=== PATIENT | female | born 1980 | race Caucasian/White ===

== ENCOUNTER 2017-08-20 11:17 | Emergency (ER) | payer OTHER ==
[2017-08-20 11:25] VITALS: BP 130/70
--- NOTE | 2017-08-20 11:46 | PHYS DOC ---
Past History Past Medical History: No Pertinent History Past Surgical History: No Surgical History Alcohol Use: None Drug Use: None Adult General Chief Complaint Chief Complaint: LACERATION/AVULSION [facility] HPI 37-year-old right-handed female patient without medical problem states she caught her left hand between second and third interphalangeal web while cutting an Avocado without other injuries or focal neuro deficit. Review of Systems Review of Systems Constitutional: Denies fever or chills [] Eyes: Denies change in visual acuity, redness, or eye pain [] HENT: Denies nasal congestion or sore throat [] Respiratory: Denies cough or shortness of breath [] Cardiovascular: No additional information not addressed in HPI [] GI: Denies abdominal pain, nausea, vomiting, bloody stools or diarrhea [] : Denies dysuria or hematuria [] Musculoskeletal: Denies back pain or joint pain [] Integument: Denies rash or skin lesions [] Neurologic: Denies headache, focal weakness or sensory changes [] Endocrine: Denies polyuria or polydipsia [] All other systems were reviewed and found to be within normal limits, except as documented in this note. Physical Exam Physical Exam Constitutional: Well developed, well nourished, no acute distress, non-toxic appearance. [] HENT: Normocephalic, atraumatic, bilateral external ears normal, oropharynx moist, no oral exudates, nose normal. [] Eyes: PERRLA, EOMI, conjunctiva normal, no discharge. [] Neck: Normal range of motion, no tenderness, supple, no stridor. [] Cardiovascular:Heart rate regular rhythm, no murmur [] Lungs & Thorax: Bilateral breath sounds clear to auscultation [] Skin: Warm, dry, no erythema, no rash. [] Back: No tenderness, no CVA tenderness. [] Extremities: 1 cm laceration between the web of second and third finger and 0.5 cm laceration in dorsal side of third finger without active bleeding Neurologic: Alert and oriented X 3, normal motor function, normal sensory function, no focal deficits noted. [] Psychologic: Affect normal, judgement normal, mood normal. [] Current Patient Data Vital Signs Vital Signs Date Time Temp Pulse Resp B/P (MAP) Pulse Ox O2 Delivery O2 Flow Rate FiO2 08/20/17 11:25 98.6 61 16 98 Room Air EKG EKG [] Radiology/Procedures Radiology/Procedures [] Course & Med Decision Making Course & Med Decision Making Evaluation of patient in ER showed 37-year-old female patient with laceration indicative able second and third finger. Patient did not want stitches and wanted tissue glue. After applying Dermabond to laceration area finger stick to get it by applying Coban .The patient instructed to keep finger close together for a few days and follow with her primary care physician. Dragon Disclaimer Dragon Disclaimer This electronic medical record was generated, in whole or in part, using a voice recognition dictation system. Departure Departure: Impression: Primary Impression: Finger laceration Disposition: HOME, SELF-CARE (At 1145) Condition: IMPROVED Patient Instructions: Tissue Adhesive Wound Care Additional Instructions: Follow-up with your physician in 3-5 days Return to ER if not getting better Laceration Repair Lac Repair Indication: [laceration ] Procedure: The patient was placed in the appropriate position and the laceration between second and third finger web repaired by Dermabond and Steri- Strip. Total repaired wound length: [1 cm]. Other Items: [Dermabond and steri strip] The patient tolerated the procedure [well]. Complications: [none]. DANIELLE ESTRADA MD Aug 20, 2017 11:46
== END 2017-08-20 11:50 | disposition home or self-care (01) ==
LOC: ER 11:17
DX: S61.213A Laceration without foreign body of left middle finger without damage to nail, initial encounter (principal); W26.0XXA Contact with knife, initial encounter; Y93.89 Activity, other specified; Y99.8 Other external cause status; Y92.89 Other specified places as the place of occurrence of the external cause
CPT/HCPCS: 12001; 99283